=== PATIENT | male | born 1980 | race Hispanic/Latino ===

== ENCOUNTER 2024-09-26 19:27 | Emergency (ER) | payer SELFPAY ==
[~2024-09-26 19:27] MED LIST: Iopamidol 370 76% 100 ML VIAL ONE
[2024-09-26] MEDS ORDERED: Thiamine HCl 200 MG/2 ML VIAL ONE (21:09)
[2024-09-26 21:14] LABS: #Basophils 0.07 10x3/uL (0.0-0.2); #Eosinophils 0.13 10x3/uL (0.0-0.5); #Monocytes 0.61 10x3/uL (0.0-1.1); #Neutrophils 9.83 10x3/uL (1.5-8.4); %Basophils 0.6 % (0.0-2.0); %Monocytes 4.9 % (0.0-10.0); %Neutrophils 79.1 % (40.0-75.0); Hematocrit 44.8 % (38.8-50.0); Hemoglobin 15.8 g/dL (13.5-17.5); Mean Corpuscular HGB CONC 35.3 g/dL (32.0-36.0); Mean Corpuscular Hemoglobin 31.5 pg (27.0-33.0); Mean Corpuscular Volume 89.4 fL (81.2-95.1); Mean Platelet Volume 9.9 fL (7.4-10.4); Platelet Count 197 10x3/uL (150-450); RBC Distribution Width 11.9 % (11.5-14.5); Red Blood Cell (RBC) Count 5.01 10x6/uL (4.32-5.72); White Blood Cell (WBC) Count 12.4 10x3/uL (3.5-10.5)
[2024-09-26] MEDS ORDERED: Folic Acid 5 MG/ML MDV IVP SCH (21:15)
[2024-09-26 21:29] LABS: ALT (SGPT) 82 U/L (8-55); AST (SGOT) 105 U/L (5-34); Albumin 3.9 g/dL (3.5-5.0); Alkaline Phosphatase 102 U/L (40-110); Anion Gap 18 mmol/L (10-20); BUN (Urea Nitrogen) 5 mg/dL (8.9-20.6); Calc. Creatinine Clearance 0 mL/min (70-130); Calcium 9.5 mg/dL (7.8-10.44); Carbon Dioxide 22 mmol/L (22-29); Chloride 98 mmol/L (98-107); Estimated GFR 113; Globulin 4.4 g/dL (2.4-3.5); Glucose 250 mg/dL (70-105); Potassium 4.1 mmol/L (3.5-5.1); Protein, Total 8.3 g/dL (6.0-8.3); Sodium 134 mmol/L (136-145)
[2024-09-26 21:30] LABS: Acetaminophen Less than 10 mcg/mL (Less than 10); Alcohol 114.3 mg/dL (Less than 10); CK (CPK) 118 U/L (30-200); Lipase 42 U/L (8-78); Magnesium 2.1 mg/dL (1.6-2.6); Salicylate Less than 8.0 mg/dL (Less than 8.0)
[2024-09-26] MEDS ORDERED: Lorazepam 2 MG/ML VIAL ONE (22:28)
[2024-09-27 00:27] LABS: Amphetamine Not Detected (NotDetected); Barbiturates Screen Not Detected (NotDetected); Benzodiazepine Screen Not Detected (NotDetected); Cocaine Metabolite Screen Not Detected (NotDetected); Methadone Not Detected (NotDetected); Methamphetamine Not Detected (NotDetected); Opiate Screen Not Detected (NotDetected); Oxycodone Screen Not Detected (NotDetected); Phencyclidine (PCP) Not Detected (NotDetected); THC/Cannabinoid Screen Not Detected (NotDetected); Tricyclic Screen Not Detected (NotDetected)
[2024-09-27] MEDS ORDERED: Ondansetron PF 4 MG/2 ML Vial IVP PRN (01:07)
[2024-09-27] MEDS ORDERED: Senokot S 8.6-50 MG TAB PO PRN (01:07)
[2024-09-27] MEDS ORDERED: Lorazepam 2 MG/ML VIAL SLOW IVP PRN ×2 (01:10)
[2024-09-27] MEDS ORDERED: Sodium Chloride 0.9% 1,000 ML IV SCH (01:15)
[2024-09-27] MEDS ORDERED: Lorazepam 2 MG/ML VIAL SLOW IVP SCH (01:15)
[2024-09-27 05:37] LABS: #Basophils 0.08 10x3/uL (0.0-0.2); #Eosinophils 0.17 10x3/uL (0.0-0.5); #Monocytes 0.83 10x3/uL (0.0-1.1); #Neutrophils 11.85 10x3/uL (1.5-8.4); %Basophils 0.6 % (0.0-2.0); %Eosinophils 1.2 % (0.0-6.0); %Lymphocytes 10.4 % (18.0-47.0); %Monocytes 5.7 % (0.0-10.0); %Neutrophils 81.7 % (40.0-75.0); Hemoglobin 15.5 g/dL (13.5-17.5); Mean Corpuscular HGB CONC 34.4 g/dL (32.0-36.0); Mean Corpuscular Hemoglobin 31.4 pg (27.0-33.0); Mean Corpuscular Volume 91.1 fL (81.2-95.1); Mean Platelet Volume 9.8 fL (7.4-10.4); Platelet Count 181 10x3/uL (150-450); RBC Distribution Width 12.1 % (11.5-14.5); Red Blood Cell (RBC) Count 4.94 10x6/uL (4.32-5.72); White Blood Cell (WBC) Count 14.5 10x3/uL (3.5-10.5)
[2024-09-27 05:44] LABS: CK (CPK) 104 U/L (30-200); Magnesium 2.2 mg/dL (1.6-2.6)
[2024-09-27 05:46] LABS: Cardiac Risk 3.5 (Less than 4.5); Cholesterol 250 mg/dl (< 200 Desired); HDL Cholesterol 72 mg/dL (>60 Neg Risk); LDL Cholesterol, Calculated 159 mg/dL; Phosphorus 2.4 mg/dL (2.3-4.7); Triglycerides 93 mg/dL (Less than 150)
[2024-09-27 06:17] LABS: ALT (SGPT) 75 U/L (8-55); AST (SGOT) 94 U/L (5-34); Albumin 3.8 g/dL (3.5-5.0); Alkaline Phosphatase 99 U/L (40-110); Anion Gap 17 mmol/L (10-20); BUN (Urea Nitrogen) 7 mg/dL (8.9-20.6); Bilirubin, Total 1.7 mg/dL (0.2-1.2); Calc. Creatinine Clearance 0 mL/min (70-130); Calcium 9.2 mg/dL (7.8-10.44); Carbon Dioxide 24 mmol/L (22-29); Chloride 101 mmol/L (98-107); Estimated GFR 111; Glucose 219 mg/dL (70-105); Potassium 4.4 mmol/L (3.5-5.1); Protein, Total 7.8 g/dL (6.0-8.3); Sodium 138 mmol/L (136-145)
[2024-09-27] MEDS ORDERED: Folic Acid 1 MG TAB PO SCH (09:00)
[2024-09-27] MEDS ORDERED: Enoxaparin 40 MG (0.4 mL) SYRINGE SC SCH (09:00)
[2024-09-27] MEDS ORDERED: Multivitamin W/ Minerals 1 TAB PO SCH (09:00)
[2024-09-27] MEDS ORDERED: Famotidine/PF 20 mg/2ml Vial SLOW IVP SCH (09:00)
[2024-09-27 12:46] LABS: Hemoglobin A1c 9.2 % (4.0-6.0)
== END 2024-09-27 09:39 | disposition short-term general hospital (02) ==
LOC: CSHERS 19:27
DX: F10.239 Alcohol dependence with withdrawal, unspecified (principal); Y90.5 Blood alcohol level of 100-119 mg/100 ml; Z55.0 Illiteracy and low-level literacy; Z75.8 Other problems related to medical facilities and other health care
CPT/HCPCS: 36415; 70496; 80053; 80061; 80306; 80307; 82550; 83036; 83690; 83735; 84100; 84443; 85025; 96374; 96375; J2060; J3411